=== PATIENT | female | born 1995 | race Caucasian/White ===

== ENCOUNTER 2018-02-07 18:01 | Emergency (ER) | END 2018-02-07 22:22 | disposition home or self-care (01) ==

== ENCOUNTER 2018-09-09 15:13 | Outpatient (CLI) | payer MEDICAID ==
[~2018-09-09] VITALS: Ht 157.5 cm; Wt 60.1 kg
[~2018-09-09 15:13] MED LIST: ACET500C5 PO
[2018-09-09 15:37] VITALS: Ht 157.5 cm; Wt 60.1 kg
[2018-09-09] MEDS ORDERED: PNV11TAB PO (15:37)
[2018-09-09 15:39] VITALS: BP 117/68; PULSE 92; RESP 19
--- NOTE | 2018-09-09 16:59 | TRIAGE ---
OB Triage Datetime Report Generated by CPN: 09/09/2018 16:59 Datetime: 09/09/2018 16:28 Vaginal Exam Dilatation (cms): 0.0 Effacement (%): 0 Station: -2 Exam By: A PINEDAUKASYAN Datetime: 09/09/2018 15:51 Assessment Type: Triage Maternal Assessment Level of Consciousness: Fully Conscious DTR's/Clonus: DTRs 2+; No Clonus Headache: Denies Blurred Vision: No Respiratory Effort: Unlabored; Regular Rhythm; Equal Expansion Breath Sounds, Left: Clear and Equal Breath Sounds, Right: Clear and Equal Nausea/Vomiting: Denies RUQ Epigastric Pain: Denies Lower Extremities Edema: None Degree: None Upper Extremities Edema: None Degree: None Facial Edema: None Fall Risk Assessment History of Falling: (0) No Secondary Diagnosis: (0) No Ambulatory Aid: (0) Bedrest/Nurse Assist IV Therapy: (0) No Gait: (0) Normal/Bedrest/Immobile Mental Status: (0) Oriented to Own Ability Fall Score: 0 Fall Risk Score Definition: No Risk: No action required Datetime: 09/09/2018 15:50 Time of Arrival: 09/09/2018 14:57 EGA: 35.2 Arrived By: Ambulatory Arrived From: Home Chief Complaint: DFM AND UC'S Movement: Present Contractions: Irregular Rupture of Membranes: Denies Vaginal Bleeding: None Vaginal Discharge: Denies Recent Sexual Intercouse: Denies Abdominal Trauma: Not Applicable Patient Complaints: Contractions; Other Time Provider Notified: 09/09/2018 16:25 Provider Notified: DR MARSHALL Initial Plan: NST BPP Labor Evaluation Frequency: 2/30MIN Monitor Mode: External Duration (sec)2399: 60-80 Quality: Mild Pattern: Normal: <= 5 Contractions in 10 Minutes Resting Tone [place]: Relaxed Heart Rate FHR Baseline Rate: 135 Monitor Mode: External US Variability: Moderate 6-25 bpm Accelerations: 15X15 Decelerations: None Category: Category I
--- NOTE | 2018-09-09 17:06 | PN ---
Triage Information Date/Time Reason for visit: DFM Weeks of Gestation 35+ /Para n/a Diabetes: none Hypertention: none Objective Vital Signs Date Temp Pulse Resp B/P (MAP) Pulse Ox O2 O2 Flow FiO2 Time Delivery Rate 09/09/18 97.9 92 19 117/68 Room Air 15:39 (84) Heart Rate: 140's Contractions: >10 Minutes Apart Disposition: Discharge Assessment/Plan Bpp 04/10 Cx clsoed +FM -->Follow up with provider -->Questions answered -->Precautions discussed MIKE GUSTAFSON M.D. Sep 09, 2018 16:49
== END 2018-09-09 16:50 | disposition home or self-care (01) ==
LOC: OBT 15:13 → L-D 15:16 → OBT 16:50
PROVIDERS: ATTEND Obstetrics & Gynecology
DX: O36.8130 Decreased fetal movements, third trimester, not applicable or unspecified (principal); Z3A.35 35 weeks gestation of pregnancy
CPT/HCPCS: 76818; Z7500; G0463